=== PATIENT | female | born 1950 | race Two or more races ===

== ENCOUNTER 2023-12-11 19:21 | Inpatient (IN) | payer OTHER ==
[~2023-12-11] VITALS: Ht 91.4 cm; Wt 63.5 kg
[2023-12-11] MEDS ORDERED: ENDOCET 5-3251 EACH PO (19:58)
[2023-12-11] MEDS ORDERED: GRALISE600 MG PO (19:58)
[2023-12-11] MEDS ORDERED: ZANAFLEX4 M1 PO (19:58)
[2023-12-11] MEDS ORDERED: MELOXICAM15 MG PO (19:59)
[2023-12-11] MEDS ORDERED: PAMELOR75 MG PO (19:59)
[2023-12-11] MEDS ORDERED: OXYCODON-ACETA1 EACH PO (19:59)
[2023-12-11] MEDS ORDERED: KEPPRA XR500 MG PO (20:00)
[2023-12-11] MEDS ORDERED: DILANTIN100 MG PO (20:00)
[2023-12-11] MEDS ORDERED: BINOSTO70 MG PO (20:00)
[2023-12-11] MEDS ORDERED: ALPRAZOLAM ODT2 MG PO (20:01)
[2023-12-11] MEDS ORDERED: BIKTARVY 50-201 EACH PO (20:01)
[2023-12-11] MEDS ORDERED: OMEPRAZOLE-BIC1 EAC1 PO (20:01)
[2023-12-11] MEDS ORDERED: FOLIC ACID1 MG PO (20:01)
[2023-12-11] MEDS ORDERED: ATORVASTATIN CA40 MG PO (20:02)
[2023-12-11] MEDS ORDERED: FENOFIBRATE150 MG PO (20:02)
[2023-12-11] MEDS ORDERED: TRIJARDY XR 121 EACH PO ×2 (20:02)
[2023-12-11] MEDS ORDERED: PAXIL40 MG PO (20:03)
[2023-12-11] MEDS ORDERED: JANTOVEN4 MG PO (20:03)
[2023-12-11] MEDS ORDERED: TEMAZEPAM30 MG PO (20:03)
[2023-12-11] MEDS ORDERED: MAXIMUM D3325 MCG PO (20:03)
[2023-12-11 23:42] LABS: HEMATOCRIT 35.8 % (36.0-45.00); HEMOGLOBIN 11.8 g/dL (12.0-15.00); MEAN CELL VOLUME 82.7 fL (80.00-100.00); MEAN CORPUSCULAR HEMOGLOBIN 27.3 pg (27.00-32.0); MEAN CORPUSCULAR HGB CONC 33.1 g/dl (32.0-36.0); PLATELET COUNT 333 K/uL (150-450); RED BLOOD COUNT 4.32 M/uL (4.00-6.00)
[2023-12-11 23:59] LABS: ALBUMIN 3.5 gm/dL (3.4-5.0); BILIRUBIN TOTAL 0.25 mg/dL (0.3-1.2); CALCIUM 9.1 mg/dL (8.5-10.1); CREATININE SERUM 0.47 mg/dL (0.55-1.02); GFR 130.26; GLOBULINA 5.1 G/DL (2.4-3.5); POTASSIUM 4.32 mEq/L (3.5-5.1); TOTAL PROTEIN 8.6 gm/dL (6.4-8.2)
[2023-12-12 00:15] LABS: INR 2.35; PARTIAL THROMBOPLASTIN TIME 45.6 SECONDS (22.0-34.0); PROTHROMBIN TIME 23.2 SECONDS (9.0-11.5)
[2023-12-12] MEDS ORDERED: MEPERIDINE HCL/PF 25 MG/ML VIAL IV ONE (00:30)
[2023-12-12] MEDS ORDERED: METRONIDAZOLE/SODIUM CHLORIDE 500 MG/100 ML PIGGYBACK IV ONE (01:00)
[2023-12-12 01:50] LABS: URINE APPEARANCE Cloudy; URINE BILIRRUBIN Negative (NEGATIVE); URINE BLOOD Negative; URINE COLOR Yellow; URINE LEUKOCYTE Large; URINE NITRATE Negative; URINE PROTEIN Negative (NEGATIVE); URINE UROBILINOGEN 0.2 E.U./dl
[2023-12-12 01:54] LABS: URINE EPITHELIAL CELLS 99.5 uL (0.0-38.8); URINE WBC 434.3 uL (0.0-23.2)
[2023-12-12 02:02] LABS: URINE GLUCOSE 100 MG/DL (NEGATIVE); URINE RBC 1.3 uL (0.0-20.8)
[2023-12-12] MEDS ORDERED: MEPERIDINE HCL/PF 50 MG/ML VIAL IM ONE (06:00)
[2023-12-12] MEDS ORDERED: PROMETHAZINE HCL 25 MG/ML AMPUL IM ONE (06:00)
[2023-12-12] MEDS ORDERED: HYOSCYAMINE SULFATE 0.125 MG TAB.SUBL SL STA (12:26)
[2023-12-12] MEDS ORDERED: 0.9 % SODIUM CHLORIDE 1,000 ML IV STA (12:26)
[2023-12-12] MEDS ORDERED: MEPERIDINE HCL/PF 50 MG/ML VIAL IM STA (12:27)
[2023-12-12] MEDS ORDERED: FAMOtidine 10 MG/ML (4ML VIAL) IV PUSH STA (12:27)
[2023-12-12] MEDS ORDERED: PROMETHAZINE HCL 50 MG/ML AMPUL IM STA (12:28)
[2023-12-12] MEDS ORDERED: METRONIDAZOLE/SODIUM CHLORIDE 100 ML IV SCH (17:55)
[2023-12-12] MEDS ORDERED: OxyCODONE HCL/APAP UD (PERCOCET) PO SCH (17:56)
[2023-12-12] MEDS ORDERED: GABAPENTIN 800 MG TABLET PO SCH (17:57)
[2023-12-12] MEDS ORDERED: PHENYTOIN SODIUM EXTENDED 100 MG CAPSULE PO SCH (17:57)
[2023-12-12] MEDS ORDERED: INSULIN LISPRO 1,000 UNIT/10 ML UNITS SUBCUTANEO PRN (18:00)
[2023-12-12] MEDS ORDERED: ONDANSETRON HCL 4 MG in 0.9 % SODIUM CHLORIDE 50 ML IV PRN (18:00)
[2023-12-12] MEDS ORDERED: 0.9 % SODIUM CHLORIDE 1,000 ML IV SCH (18:00)
[2023-12-12] MEDS ORDERED: ACETAMINOPHEN 500 MG GEL..CAP PO PRN ×2 (18:00)
[2023-12-12] MEDS ORDERED: DEXTROSE 50 % IN WATER 0.5 G/ML DISP.SYRIN IV PRN (18:00)
[2023-12-12] MEDS ORDERED: CIPROFLOXACIN IN 5 % DEXTROSE 200 ML IV SCH (21:00)
[2023-12-12] MEDS ORDERED: ALPRAzolam 1 MG TABLET PO SCH (21:00)
[2023-12-13] MEDS ORDERED: LevETIRAcetam 500 MG TAB. PO SCH (09:00)
[2023-12-13] MEDS ORDERED: ENOXAPARIN SODIUM 40 MG/0.4 ML SYRINGE SUBCUTANEO SCH (09:00)
[2023-12-13] MEDS ORDERED: FAMOTIDINE/PF 20 MG in 0.9 % SODIUM CHLORIDE 8 ML IV PUSH SCH (09:00)
[2023-12-13] MEDS ORDERED: PATIENTS OWN MEDICATION (MEDICAMENTO EN PHA) PO SCH (09:00)
[2023-12-13 09:02] LABS: AMYLASE 83 U/L (25-115)
[2023-12-13 09:03] LABS: LIPASE 371 U/L (13-75)
[2023-12-13] MEDS ORDERED: DEXTROSE 50 % IN WATER 0.5 G/ML VIAL IV PRN (12:45)
[2023-12-14 08:06] LABS: AMYLASE 75 U/L (25-115)
[2023-12-14 08:20] LABS: LIPASE 359 U/L (13-75)
[2023-12-14] MEDS ORDERED: CLINDAMYCIN HCL 300 MG CAPSULE PO SCH (09:00)
[2023-12-14] MEDS ORDERED: levoFLOXacin IN DEXTROSE 5 % 5 MG/ML PIGGYBAG IV SCH (09:00)
[2023-12-14] MEDS ORDERED: LOSARTAN POTASSIUM 50 MG TABLET PO SCH (10:12)
[2023-12-14] MEDS ORDERED: DICYCLOMINE HCL 20 MG TABLET PO SCH (13:00)
[2023-12-15] MEDS ORDERED: OxyCODONE HCL/APAP UD (PERCOCET) PO SCH (09:00)
[2023-12-15] MEDS ORDERED: levoFLOXacin 750 MG TABLET PO SCH (17:00)
[2023-12-15] MEDS ORDERED: WARFARIN SODIUM 5 MG TABLET PO SCH (21:00)
[2023-12-16 07:59] LABS: INR 1.97
[2023-12-16 08:14] LABS: PROTHROMBIN TIME 19.7 SECONDS (9.0-11.5)
== END 2023-12-16 17:10 | disposition home or self-care (01) | DRG 444 ==
LOC: ER 19:22 → SEC-K 12-12 19:08 → SURH 12-12 19:08
PROVIDERS: Emergency Medicine; General Practice; ADMIT Internal Medicine; ATTEND Internal Medicine
PROC: BW40ZZZ Ultrasonography of Abdomen (ICD-10-PCS; principal; 2023-12-12)
PROC: CF1YYZZ Planar Nuclear Medicine Imaging of Hepatobiliary System and Pancreas using Other Radionuclide (ICD-10-PCS; 2023-12-13)
DX: K81.0 Acute cholecystitis (principal); K85.90 Acute pancreatitis without necrosis or infection, unspecified; B20 Human immunodeficiency virus [HIV] disease; I10 Essential (primary) hypertension; E78.5 Hyperlipidemia, unspecified; K21.9 Gastro-esophageal reflux disease without esophagitis; S61.250A Open bite of right index finger without damage to nail, initial encounter; W54.0XXA Bitten by dog, initial encounter; Y92.9 Unspecified place or not applicable

== ENCOUNTER 2024-01-23 12:13 | Inpatient (IN) | payer OTHER ==
[~2024-01-23] VITALS: Ht 182.9 cm; Wt 63.5 kg
[~2024-01-23 12:13] MED LIST: ALPRAZOLAM ODT2 MG PO; ATORVASTATIN CA40 MG PO; BIKTARVY 50-201 EACH PO; BINOSTO70 MG PO; DILANTIN100 MG PO; ENDOCET 5-3251 EACH PO; FENOFIBRATE150 MG PO; FOLIC ACID1 MG PO; GRALISE600 MG PO; JANTOVEN4 MG PO; KEPPRA XR500 MG PO; MAXIMUM D3325 MCG PO; MELOXICAM15 MG PO; OMEPRAZOLE-BIC1 EAC1 PO; OXYCODON-ACETA1 EACH PO; PAMELOR75 MG PO; PAXIL40 MG PO; TEMAZEPAM30 MG PO; TRIJARDY XR 121 EACH PO; ZANAFLEX4 M1 PO
[2024-01-23] MEDS ORDERED: FAMOTIDINE/PF 20 MG/2 ML VIAL ONE (13:24)
[2024-01-23] MEDS ORDERED: FAMOtidine 10 MG/ML (4ML VIAL) IV ONE (13:30)
[2024-01-23] MEDS ORDERED: 0.9 % SODIUM CHLORIDE 1,000 ML IV ONE (13:30)
[2024-01-23] MEDS ORDERED: VITAMIN B COMPLEX/LYSINE 1 ML ML PO ONE (13:30)
[2024-01-23 14:16] LABS: HEMATOCRIT 37.2 % (36.0-45.00); HEMOGLOBIN 12.4 g/dL (12.0-15.00); MEAN CELL VOLUME 82.3 fL (80.00-100.00); MEAN CORPUSCULAR HEMOGLOBIN 27.5 pg (27.00-32.0); MEAN CORPUSCULAR HGB CONC 33.4 g/dl (32.0-36.0); PLATELET COUNT 376 K/uL (150-450); RED BLOOD COUNT 4.52 M/uL (4.00-6.00); RED CELL DISTRIBUTION WIDTH 15.2 % (11.5-14.5)
[2024-01-23 14:29] LABS: INR 1.36; PARTIAL THROMBOPLASTIN TIME 35.9 SECONDS (22.0-34.0)
[2024-01-23 14:33] LABS: ALBUMIN 2.8 gm/dL (3.4-5.0); BILIRUBIN TOTAL 0.61 mg/dL (0.3-1.2); CREATININE SERUM 0.39 mg/dL (0.55-1.02); GFR 161.55; GLOBULINA 5.9 G/DL (2.4-3.5); POTASSIUM 3.06 mEq/L (3.5-5.1); TOTAL PROTEIN 8.7 gm/dL (6.4-8.2)
[2024-01-24] MEDS ORDERED: FAMOTIDINE/PF 20 MG/2 ML VIAL IV PUSH STA (05:29)
[2024-01-24] MEDS ORDERED: 0.9 % SODIUM CHLORIDE 1,000 ML IV ONE (05:30)
[2024-01-24 06:48] LABS: HEMATOCRIT 35.9 % (36.0-45.00); HEMOGLOBIN 11.9 g/dL (12.0-15.00); MEAN CELL VOLUME 80.8 fL (80.00-100.00); MEAN CORPUSCULAR HEMOGLOBIN 26.9 pg (27.00-32.0); MEAN CORPUSCULAR HGB CONC 33.3 g/dl (32.0-36.0); PLATELET COUNT 377 K/uL (150-450); RED BLOOD COUNT 4.44 M/uL (4.00-6.00); RED CELL DISTRIBUTION WIDTH 15.4 % (11.5-14.5)
[2024-01-24 06:52] LABS: ALBUMIN 2.7 gm/dL (3.4-5.0); BILIRUBIN TOTAL 0.57 mg/dL (0.3-1.2); CALCIUM 9.6 mg/dL (8.5-10.1); CREATININE SERUM 0.4 mg/dL (0.55-1.02); GFR 156.9; GLOBULINA 5.5 G/DL (2.4-3.5); POTASSIUM 3.22 mEq/L (3.5-5.1); TOTAL PROTEIN 8.2 gm/dL (6.4-8.2)
[2024-01-24] MEDS ORDERED: FAMOTIDINE/PF 20 MG in 0.9 % SODIUM CHLORIDE 100 ML IV SCH (17:05)
[2024-01-24] MEDS ORDERED: METRONIDAZOLE/SODIUM CHLORIDE 100 ML IV SCH (17:06)
[2024-01-24] MEDS ORDERED: POTASSIUM CHLORIDE 10 MEQ CAPSULE PO ONE (17:15)
[2024-01-24] MEDS ORDERED: 0.9 % SODIUM CHLORIDE 1,000 ML IV SCH (17:15)
[2024-01-24] MEDS ORDERED: ONDANSETRON HCL 4 MG in 0.9 % SODIUM CHLORIDE 50 ML IV PRN (17:15)
[2024-01-24] MEDS ORDERED: PANTOPRAZOLE SODIUM 40 MG/VIAL VIAL IV SCH (19:05)
[2024-01-24] MEDS ORDERED: MORPHINE SULFATE 2 MG/ML CARTRIDGE IV PRN (19:15)
[2024-01-24] MEDS ORDERED: AMINO ACIDS 4.25 %/DEXTROSE 5% 1,000 ML PERIFERAL SCH (19:57)
[2024-01-25 10:11] LABS: CALCIUM 9.1 mg/dL (8.5-10.1); CREATININE SERUM 0.34 mg/dL (0.55-1.02); GFR 189.26; POTASSIUM 3.42 mEq/L (3.5-5.1)
[2024-01-25] MEDS ORDERED: AMINO ACIDS 4.25 %/DEXTROSE 5% 1,000 ML PERIFERAL SCH (17:00)
[2024-01-25 17:14] LABS: CALCIUM 9.3 mg/dL (8.5-10.1); CHOL HDL RATIO 3.4 (0-5.0); CREATININE SERUM 0.35 mg/dL (0.55-1.02); GFR 183.04
[2024-01-25 17:25] LABS: POTASSIUM 2.83 mEq/L (3.5-5.1)
[2024-01-25 18:01] LABS: HEMATOCRIT 35.5 % (36.0-45.00); HEMOGLOBIN 11.8 g/dL (12.0-15.00); MEAN CELL VOLUME 81.8 fL (80.00-100.00); MEAN CORPUSCULAR HEMOGLOBIN 27.1 pg (27.00-32.0); MEAN CORPUSCULAR HGB CONC 33.2 g/dl (32.0-36.0); PLATELET COUNT 372 K/uL (150-450); RED BLOOD COUNT 4.34 M/uL (4.00-6.00); RED CELL DISTRIBUTION WIDTH 15.3 % (11.5-14.5)
[2024-01-25] MEDS ORDERED: POTASSIUM CHLORIDE IN WATER 40 MEQ/100 ML PIGGYBAG IV SCH (18:35)
[2024-01-26 14:03] LABS: ALBUMIN 2.4 gm/dL (3.4-5.0); CALCIUM 8.5 mg/dL (8.5-10.1); CREATININE SERUM 0.37 mg/dL (0.55-1.02); GFR 171.67; POTASSIUM 3.61 mEq/L (3.5-5.1)
[2024-01-26 14:30] LABS: PHOSPHOROUS 1.7 mg/dL (2.5-4.9)
[2024-01-26 14:31] LABS: MAGNESIUM 1.1 mg/dL (1.8-2.4)
[2024-01-26] MEDS ORDERED: POTASSIUM PHOS,M-BASIC-D-BASIC 15 MM in 0.9 % SODIUM CHLORIDE 250 ML IV NR (16:00)
[2024-01-26] MEDS ORDERED: MAGNESIUM SULFATE IN WATER 4 GM/100 ML PIGGYBACK IV NR (16:00)
[2024-01-26] MEDS ORDERED: ENALAPRILAT DIHYDRATE 1.25 MG/ML VIAL IV NR (17:30)
[2024-01-27 12:00] LABS: CREATININE SERUM 0.23 mg/dL (0.55-1.02); GFR 297.15; POTASSIUM 3.66 mEq/L (3.5-5.1)
[2024-01-27 12:03] LABS: ALBUMIN 2.4 gm/dL (3.4-5.0); CALCIUM 8.2 mg/dL (8.5-10.1); GLOBULINA 4.7 G/DL (2.4-3.5); MAGNESIUM 1.4 mg/dL (1.8-2.4); PHOSPHOROUS 2.4 mg/dL (2.5-4.9); TOTAL PROTEIN 7.1 gm/dL (6.4-8.2)
[2024-01-27 12:04] LABS: BILIRUBIN TOTAL 1.67 mg/dL (0.3-1.2)
[2024-01-28] MEDS ORDERED: MIDAZOLAM HCL 2 MG/2 ML VIAL IV PUSH ONE (15:15)
[2024-01-28] MEDS ORDERED: fentaNYL CITRATE 50 MCG/ML AMPUL IV PUSH ONE (15:15)
[2024-01-29 08:22] LABS: ALBUMIN 2.4 gm/dL (3.4-5.0); CALCIUM 8.2 mg/dL (8.5-10.1); CREATININE SERUM 0.3 mg/dL (0.55-1.02); GFR 218.68
[2024-01-29 09:56] LABS: POTASSIUM 2.97 mEq/L (3.5-5.1)
[2024-01-29 09:57] LABS: MAGNESIUM 1.1 mg/dL (1.8-2.4); PHOSPHOROUS 2.2 mg/dL (2.5-4.9)
[2024-01-29] MEDS ORDERED: MAGNESIUM SULFATE IN WATER 2 GM/50 ML PIGGYBAG IV NR ×2 (10:15→11:45)
[2024-01-29] MEDS ORDERED: POTASSIUM CHLORIDE IN WATER 40 MEQ/100 ML PIGGYBAG IV SCH (14:00)
[2024-01-29] MEDS ORDERED: POTASSIUM CHLORIDE IN WATER 40 MEQ/100 ML PIGGYBAG IV ONE (22:33)
[2024-01-30 08:02] LABS: CALCIUM 7.9 mg/dL (8.5-10.1); GFR 257.94; MAGNESIUM 1.5 mg/dL (1.8-2.4); PHOSPHOROUS 2.1 mg/dL (2.5-4.9); POTASSIUM 3.64 mEq/L (3.5-5.1)
[2024-01-30 08:08] LABS: CREATININE SERUM 0.26 mg/dL (0.55-1.02)
[2024-01-31 06:23] LABS: HEMATOCRIT 33.3 % (36.0-45.00); HEMOGLOBIN 10.8 g/dL (12.0-15.00); MEAN CELL VOLUME 80.6 fL (80.00-100.00); MEAN CORPUSCULAR HEMOGLOBIN 26.1 pg (27.00-32.0); MEAN CORPUSCULAR HGB CONC 32.4 g/dl (32.0-36.0); PLATELET COUNT 310 K/uL (150-450); RED BLOOD COUNT 4.13 M/uL (4.00-6.00); RED CELL DISTRIBUTION WIDTH 15.5 % (11.5-14.5)
[2024-01-31 06:51] LABS: INR 3.74
[2024-01-31 07:16] LABS: ALBUMIN 2.1 gm/dL (3.4-5.0); BILIRUBIN TOTAL 1.21 mg/dL (0.3-1.2); BILIRUBIN,CONJUGATED 0.72 mg/dL (0.0-0.2); BILIRUBIN,UNCONJUGATED 0.49 mg/dL (0.0-0.6); CALCIUM 8.4 mg/dL (8.5-10.1); CHOL HDL RATIO 3.8 (0-5.0); GLOBULINA 4.1 G/DL (2.4-3.5); POTASSIUM 3.27 mEq/L (3.5-5.1); TOTAL PROTEIN 6.2 gm/dL (6.4-8.2)
[2024-01-31 08:08] LABS: GFR 236.8
[2024-01-31 08:09] LABS: CREATININE SERUM 0.28 mg/dL (0.55-1.02); MAGNESIUM 1.1 mg/dL (1.8-2.4)
[2024-01-31 08:10] LABS: PARTIAL THROMBOPLASTIN TIME 53.5 SECONDS (22.0-34.0); PROTHROMBIN TIME 35.6 SECONDS (9.0-11.5)
[2024-01-31] MEDS ORDERED: MAGNESIUM SULFATE IN WATER 2 GM/50 ML PIGGYBAG IV NR (10:17)
[2024-01-31] MEDS ORDERED: PHYTONADIONE 10 MG/ML AMPUL SUBCUTANEO STA (10:18)
[2024-01-31 14:58] LABS: ABG pCO2 28.5 mmHg (35-45); BASE EXCESS -2.6 mmol/l; BICARBONATE 19.8 mmol/l (23-25); SaO2 61.9 %; Tco2 20.7 mmol/l
[2024-01-31 15:05] LABS: ABG PO2 30.4 mmHg (80-100); o2 32 %; puncture site BRADIAL RIGHT
[2024-02-01] MEDS ORDERED: PHYTONADIONE 10 MG/ML AMPUL SUBCUTANEO SCH (09:00)
== END 2024-01-31 22:10 | disposition expired | DRG 375 ==
LOC: ER 12:14 → MEDI 01-24 17:21 → O/R 01-25 09:42 → MEDI 01-25 09:44
PROVIDERS: General Practice; Internal Medicine Hematology & Oncology; ADMIT Internal Medicine; ATTEND Internal Medicine
PROC: 0D9670Z Drainage of Stomach with Drainage Device, Via Natural or Artificial Opening (ICD-10-PCS; principal; 2024-01-23)
PROC: BW21YZZ Computerized Tomography (CT Scan) of Abdomen and Pelvis using Other Contrast (ICD-10-PCS; 2024-01-23)
PROC: BW21ZZZ Computerized Tomography (CT Scan) of Abdomen and Pelvis (ICD-10-PCS; 2024-01-24)
PROC: 02HV33Z Insertion of Infusion Device into Superior Vena Cava, Percutaneous Approach (ICD-10-PCS; 2024-01-25)
PROC: 3E0436Z Introduction of Nutritional Substance into Central Vein, Percutaneous Approach (ICD-10-PCS; 2024-01-25)
PROC: 3E04329 Introduction of Other Anti-infective into Central Vein, Percutaneous Approach (ICD-10-PCS; 2024-01-25)
PROC: 4A12X4Z Monitoring of Cardiac Electrical Activity, External Approach (ICD-10-PCS; 2024-01-25)
PROC: BW30ZZZ Magnetic Resonance Imaging (MRI) of Abdomen (ICD-10-PCS; 2024-01-26)
PROC: BW30YZZ Magnetic Resonance Imaging (MRI) of Abdomen using Other Contrast (ICD-10-PCS; 2024-01-26)
DX: C16.3 Malignant neoplasm of pyloric antrum (principal); B20 Human immunodeficiency virus [HIV] disease; K31.1 Adult hypertrophic pyloric stenosis; C77.1 Secondary and unspecified malignant neoplasm of intrathoracic lymph nodes; C79.72 Secondary malignant neoplasm of left adrenal gland; C79.71 Secondary malignant neoplasm of right adrenal gland; C79.11 Secondary malignant neoplasm of bladder; C78.02 Secondary malignant neoplasm of left lung; C78.01 Secondary malignant neoplasm of right lung; J90 Pleural effusion, not elsewhere classified; D68.9 Coagulation defect, unspecified; I46.9 Cardiac arrest, cause unspecified; J44.9 Chronic obstructive pulmonary disease, unspecified; I10 Essential (primary) hypertension; E11.9 Type 2 diabetes mellitus without complications; K59.00 Constipation, unspecified; E87.6 Hypokalemia; Z89.612 Acquired absence of left leg above knee; Z89.611 Acquired absence of right leg above knee; Z79.01 Long term (current) use of anticoagulants; Z87.891 Personal history of nicotine dependence; Z79.84 Long term (current) use of oral hypoglycemic drugs; Z66 Do not resuscitate; R54 Age-related physical debility
CPT/HCPCS: 74182